=== PATIENT | female | born 1940 | race Asian ===

== ENCOUNTER 2023-01-03 22:13 | Inpatient (IN) | payer MEDICARE, OTHER ==
[~2023-01-03] VITALS: Ht 162.6 cm; Wt 84.8 kg
[2023-01-03 23:18] LABS: BASOPHILS % (AUTO) 0.9 % (0.0-2.0); EOSINOPHILS % (AUTO) 3.3 % (1.0-6.0); HEMATOCRIT 40.4 % (36-46); HEMOGLOBIN 13.2 g/dL (12.0-16.0); LYMPHOCYTES # (AUTO) 3.6 K/uL (1.0-4.8); LYMPHOCYTES % (AUTO) 28.9 % (22.0-44.0); MEAN CORPUSCULAR HEMOGLOBIN 32.8 pg (26.0-34.0); MEAN CORPUSCULAR HGB CONC 32.7 G/dL (31.0-37.0); MEAN CORPUSCULAR VOLUME 100 fL (80-100); MONOCYTES % (AUTO) 8.1 % (2.0-9.0); NEUTROPHILS # (AUTO) 7.3 K/uL (1.8-7.7); NEUTROPHILS % (AUTO) 58.8 % (40.0-70.0); PLATELET COUNT (AUTO) 159 K/uL (150-450); RED BLOOD CELL COUNT(AUTO) 4.04 MIL/uL (4.00-5.20); RED CELL DISTRIBUTION WIDTH 14.6 % (11.5-14.5)
[2023-01-03 23:26] LABS: CREATININE 1.62 mg/dL (0.60-1.30); POTASSIUM 3.8 mmol/L (3.5-5.1)
[2023-01-03 23:30] LABS: PROTHROMBIN TIME 10.9 SEC (9.4-11.6)
[2023-01-03 23:32] LABS: ALBUMIN 3.1 g/dL (3.4-5.0); TOTAL PROTEIN, SERUM 7.1 g/dL (6.4-8.2)
[2023-01-03] MEDS ORDERED: SODIUM CHLORIDE 0.9% 1,000 ML IV ONE (23:45)
[2023-01-03] MEDS ORDERED: DILTIAZEM HCL 125 MG in DEXTROSE 5%-WATER 100 ML IV PRN (23:45)
[2023-01-04 00:36] LABS: LACTIC ACID 2.4 mmol/L (0.4-2.0)
[2023-01-04 02:19] LABS: APPEARANCE,URINE CLEAR (CLEAR); BILIRUBIN,URINE NEGATIVE (NEGATIVE); GLUCOSE, URINE (UA) NEGATIVE (NEGATIVE); KETONES,URINE NEGATIVE (NEGATIVE); LEUKOCYTE ESTERASE ,URINE LARGE (NEGATIVE); NITRATE,URINE NEGATIVE (NEGATIVE); OCCULT BLOOD,URINE TRACE (NEGATIVE); PROTEIN,URINE NEGATIVE (NEGATIVE); UROBILINOGEN,URINE <=1.0 mg/dL (<=1.0)
[2023-01-04 02:35] LABS: BACTERIA,URINE Few /HPF (None Seen); RBC,URINE 0-2 /HPF (0-2); SQUAMOUS EPITHELIAL CELL,UR Few /LPF (None Seen)
[2023-01-04 04:07] VITALS: BP 138/55; PULSE 61; RESP 18; TEMP 98
[2023-01-04 08:00] VITALS: BP 148/69; PULSE 60; RESP 18; TEMP 97.9
[2023-01-04 10:41] LABS: GLUCOMETER DEV NAME(LOC) 5S.1B
[2023-01-04 11:36] VITALS: BP 160/72; PULSE 65; RESP 20; TEMP 97.4
[2023-01-04] MEDS ORDERED: ZOLPIDEM TARTRATE 5 MG TABLET PO PRN (12:00)
[2023-01-04] MEDS ORDERED: BISACODYL 10 MG RECTAL RECTAL SUPPOSITORY PR PRN (12:00)
[2023-01-04] MEDS ORDERED: ACETAMINOPHEN 325 MG TABLET PO PRN (12:00)
[2023-01-04] MEDS ORDERED: ONDANSETRON HCL 4 MG/2 ML VIAL IVP PRN (12:00)
[2023-01-04] MEDS ORDERED: MAGNESIUM HYDROXIDE SUSPENSION 30 ML UDCUP PO PRN (12:00)
[2023-01-04] MEDS ORDERED: ASPIRIN 81 MG CHEWABLE TABLET PO SCH (12:00)
[2023-01-04] MEDS ORDERED: HYDROCODONE/ACETAMINOPHEN 5-325 MG TABLET PO PRN (12:00)
[2023-01-04] MEDS ORDERED: MORPHINE SULFATE 2 MG/ML SYRINGE IVP PRN (12:00)
[2023-01-04] MEDS ORDERED: ATENOLOL 25 MG TABLET PO SCH (12:00)
[2023-01-04 15:36] VITALS: BP 153/74; PULSE 66; RESP 17; TEMP 96.2
[2023-01-04] MEDS ORDERED: HEPARIN SODIUM,PORCINE 5,000 UNITS/ML VIAL SQ SCH (16:00)
[2023-01-04] MEDS ORDERED: HEPARIN SODIUM,PORCINE 5,000 UNITS/ML VIAL IVP PRN ×2 (18:00)
[2023-01-04] MEDS ORDERED: HEPARIN SODIUM,PORCINE 5,000 UNITS/ML VIAL IVP ONE (18:00)
[2023-01-04] MEDS ORDERED: SODIUM CHLORIDE 0.9% 250 ML IV ONE (19:07)
[2023-01-04 19:18] LABS: BASOPHILS % (AUTO) 0.8 % (0.0-2.0); EOSINOPHILS % (AUTO) 4.7 % (1.0-6.0); HEMATOCRIT 38.8 % (36-46); HEMOGLOBIN 13.1 g/dL (12.0-16.0); LYMPHOCYTES # (AUTO) 2.9 K/uL (1.0-4.8); LYMPHOCYTES % (AUTO) 29.5 % (22.0-44.0); MEAN CORPUSCULAR HEMOGLOBIN 33.9 pg (26.0-34.0); MEAN CORPUSCULAR HGB CONC 33.7 G/dL (31.0-37.0); MEAN CORPUSCULAR VOLUME 100 fL (80-100); MONOCYTES # (AUTO) 0.7 K/uL (0.1-1.0); MONOCYTES % (AUTO) 6.7 % (2.0-9.0); NEUTROPHILS # (AUTO) 5.8 K/uL (1.8-7.7); NEUTROPHILS % (AUTO) 58.3 % (40.0-70.0); PLATELET COUNT (AUTO) 142 K/uL (150-450); RED BLOOD CELL COUNT(AUTO) 3.87 MIL/uL (4.00-5.20); RED CELL DISTRIBUTION WIDTH 14.6 % (11.5-14.5)
[2023-01-04] MEDS: HEPARIN SODIUM 25000 UNITS/D5W 250 ML IV PRN (19:29)
[2023-01-04 19:35] LABS: INR 1.1 (0.9-1.1)
[2023-01-04 20:21] VITALS: BP 151/81; PULSE 60; RESP 20; TEMP 98.3
[2023-01-04 20:26] LABS: GLUCOMETER DEV NAME(LOC) 5N.2C
[2023-01-04 20:26] LABS: GLUCOMETER DEV NAME(LOC) 5S.1B
[2023-01-04] MEDS ORDERED: APIXABAN 2.5 MG TABLET PO SCH (21:00)
[2023-01-04] MEDS: DOCUSATE SODIUM 100 MG CAPSULE PO SCH (21:25)
[2023-01-04] MEDS: METOPROLOL TARTRATE 25 MG TABLET PO SCH (21:25)
[2023-01-05 00:21] VITALS: BP 155/71; PULSE 56; RESP 17; TEMP 97.8
[2023-01-05] MEDS: HEPARIN SODIUM 25000 UNITS/D5W 250 ML IV PRN (02:07)
[2023-01-05 05:34] VITALS: BP 164/77; PULSE 58; RESP 17; TEMP 98
[2023-01-05 07:30] LABS: BASOPHILS % (AUTO) 0.7 % (0.0-2.0); EOSINOPHILS % (AUTO) 6.4 % (1.0-6.0); HEMATOCRIT 40.6 % (36-46); HEMOGLOBIN 13.5 g/dL (12.0-16.0); LYMPHOCYTES # (AUTO) 3.2 K/uL (1.0-4.8); LYMPHOCYTES % (AUTO) 33.2 % (22.0-44.0); MEAN CORPUSCULAR HEMOGLOBIN 33.3 pg (26.0-34.0); MEAN CORPUSCULAR HGB CONC 33.1 G/dL (31.0-37.0); MEAN CORPUSCULAR VOLUME 100 fL (80-100); MONOCYTES # (AUTO) 0.9 K/uL (0.1-1.0); MONOCYTES % (AUTO) 9.6 % (2.0-9.0); NEUTROPHILS # (AUTO) 4.9 K/uL (1.8-7.7); NEUTROPHILS % (AUTO) 50.1 % (40.0-70.0); PLATELET COUNT (AUTO) 142 K/uL (150-450); RED BLOOD CELL COUNT(AUTO) 4.04 MIL/uL (4.00-5.20); RED CELL DISTRIBUTION WIDTH 14.6 % (11.5-14.5)
[2023-01-05 07:42] VITALS: BP 180/78; PULSE 60; RESP 18; TEMP 98.2
[2023-01-05 07:59] LABS: CALCIUM, TOTAL 8.8 mg/dL (8.8-10.5); CREATININE 1.06 mg/dL (0.60-1.30); POTASSIUM 3.7 mmol/L (3.5-5.1); THYROID STIMULATING HORMONE 1.66 uIU/mL (0.36-3.74)
[2023-01-05] MEDS: METOPROLOL TARTRATE 25 MG TABLET PO SCH (08:50)
[2023-01-05] MEDS: DOCUSATE SODIUM 100 MG CAPSULE PO SCH (08:50)
[2023-01-05] MEDS ORDERED: LOVASTATIN 20 MG TABLET PO SCH (09:00)
[2023-01-05] MEDS ORDERED: PANTOPRAZOLE SODIUM 40 MG DR TABLET PO SCH (09:00)
[2023-01-05] MEDS ORDERED: APIXABAN 2.5 MG TABLET PO SCH (09:45)
[2023-01-05 10:28] VITALS: BP 170/68; PULSE 70
[2023-01-05] MEDS ORDERED: AmLODIPine BESYLATE 5 MG TABLET PO SCH (10:30)
[2023-01-05] MEDS ORDERED: APIX2.5T PO (13:19)
[2023-01-05] MEDS ORDERED: AMLO-257 PO (13:19)
[2023-01-05] MEDS ORDERED: CEPH-558 PO (13:19)
[2023-01-05] MEDS ORDERED: LOVA20TA73 PO (13:19)
[2023-01-05] MEDS ORDERED: METO25 PO (13:19)
[2023-01-05 13:51] VITALS: BP 154/78; PULSE 74
[2023-01-05] MEDS ORDERED: CEPHALEXIN MONOHYDRATE 500 MG CAPSULE PO SCH (16:00)
== END 2023-01-05 14:25 | disposition home or self-care (01) | DRG 309 ==
LOC: EMS 22:14 → 5S 01-04 02:25
PROVIDERS: ADMIT Hospitalist; ATTEND Hospitalist
DX: I47.1 Supraventricular tachycardia (principal); N17.9 Acute kidney failure, unspecified; N39.0 Urinary tract infection, site not specified; I48.0 Paroxysmal atrial fibrillation; R09.02 Hypoxemia; E11.65 Type 2 diabetes mellitus with hyperglycemia; I12.9 Hypertensive chronic kidney disease with stage 1 through stage 4 chronic kidney disease, or unspecified chronic kidney disease; N18.30 Chronic kidney disease, stage 3 unspecified; E78.00 Pure hypercholesterolemia, unspecified; E11.22 Type 2 diabetes mellitus with diabetic chronic kidney disease; R07.89 Other chest pain
CPT/HCPCS: 70450; 71045; 71250; 80048; 80053; 80061; 81001; 82550; 82962; 83036; 83605; 83880; 84443; 84484; 85025; 85610; 85730; 87086; 87186; 93005; 93306; 99285; G0378; J1644; J3490; J7050; J7060; 36415-L1; 36415-TC